=== PATIENT | female | born 1960 | race Caucasian/White ===

== ENCOUNTER → 2017-07-09 | Outpatient (CLI) | payer BC | END | disposition home or self-care (01) | LOC: CFH 10:33 | PROVIDERS: ATTEND Internal Medicine Cardiovascular Disease | DX: M41.84 Other forms of scoliosis, thoracic region (principal); M41.86 Other forms of scoliosis, lumbar region | CPT/HCPCS: 71020 ==

== ENCOUNTER → 2017-07-31 | Outpatient (CLI) | payer BC | END | disposition home or self-care (01) | LOC: EDSTATUS 14:00 → CFH 14:20 | PROVIDERS: ATTEND Internal Medicine Cardiovascular Disease | DX: I34.1 Nonrheumatic mitral (valve) prolapse (principal); Z85.3 Personal history of malignant neoplasm of breast | CPT/HCPCS: 93306 ==

== ENCOUNTER 2021-04-15 23:13 | Emergency (ER) | payer BC ==
[~2021-04-15] VITALS: Ht 170.2 cm; Wt 66.0 kg
[2021-04-15] MEDS ORDERED: SODIUM CHLORIDE FLUSH 10ML SYR IVF ONE (23:30)
[2021-04-15] MEDS ORDERED: ONDANSETRON 2MG/ML, 2ML IVPush ONE (23:30)
[2021-04-15] MEDS ORDERED: ONDANSETRON 2MG/ML, 2ML ONE (23:35)
[2021-04-15] MEDS ORDERED: HYDROmorphone 1 MG/ML, 1ML INJ ONE (23:35)
[2021-04-15] MEDS: HYDROmorphone 1 MG/ML, 1ML INJ IVPush PRN (23:39)
[2021-04-16] MEDS ORDERED: PROPOFOL 10 MG/ML, 20ML IVPush ONE
[2021-04-16] MEDS ORDERED: PROPOFOL 10 MG/ML, 20ML ONE (00:05)
[2021-04-16 00:51] LABS: ALANINE AMINOTRANSFERASE 29 U/L (12-78); ALBUMIN 4.2 g/dL (3.4-5.0); ANION GAP 7 mmol/L (5-15); CALCIUM 9.3 mg/dL (8.5-10.1); CHLORIDE 107 mmol/L (98-107); CREATININE 0.61 mg/dL (0.55-1.02)
[2021-04-16] MEDS ORDERED: HYDROmorphone 1 MG/ML, 1ML INJ ONE ×2 (00:52→01:07)
[2021-04-16 00:54] LABS: ALKALINE PHOSPHATASE 127 U/L (45-117); BILIRUBIN,TOTAL 0.6 mg/dL (0.2-1.0); TOTAL PROTEIN 7.7 g/dL (6.4-8.2)
[2021-04-16] MEDS: HYDROmorphone 1 MG/ML, 1ML INJ IVPush PRN (00:55)
[2021-04-16] MEDS ORDERED: HYDROmorphone 1 MG/ML, 1ML INJ IV ONE (01:00)
[2021-04-16] MEDS ORDERED: ONDANSETRON 2MG/ML, 2ML ONE (01:07)
[2021-04-16 01:15] VITALS: BP 133/80
[2021-04-16] MEDS ORDERED: ONDANSETRON 2MG/ML, 2ML IVPush ONE (01:30)
== END 2021-04-16 01:39 | disposition home or self-care (01) ==
LOC: ED 23:43
DX: S52.572A Other intraarticular fracture of lower end of left radius, initial encounter for closed fracture (principal); S52.602A Unspecified fracture of lower end of left ulna, initial encounter for closed fracture; K21.9 Gastro-esophageal reflux disease without esophagitis; W01.0XXA Fall on same level from slipping, tripping and stumbling without subsequent striking against object, initial encounter; Y93.89 Activity, other specified; Y92.009 Unspecified place in unspecified non-institutional (private) residence as the place of occurrence of the external cause; Y99.8 Other external cause status
CPT/HCPCS: 25605; 36415; 73100; 80053; 96374; 96375; 96376; 99152; 99285; J1170; J2405